=== PATIENT | male | born 1985 | race Caucasian/White ===

== ENCOUNTER 2018-05-06 20:37 | Emergency (ER) | payer OTHER ==
[~2018-05-06] VITALS: Ht 177.8 cm; Wt 95.7 kg
[~2018-05-06 20:37] MED LIST: ACET-7740 PO
[2018-05-06 20:45] VITALS: BP 146/85
--- NOTE | 2018-05-06 20:47 | NUR ---
pt returned to lobby in stable condition
--- NOTE | 2018-05-06 21:20 | NUR ---
ASSUMED CARE OF PT AT THIS TIME. C/O LACERATION TO VOLAR SURFACE OF RIGHT FOOT S/P ACCIDENTALLY BREAKING GLASS BOTTLE OVER FOOT. BLEEDING WELL CONTROLLED AT THIS TIME. AAOX4 WITH EVEN AND STEADY GAIT; PATIENT STATES PAIN OF 9/10; VSS; PATIENT POSITIONED FOR COMFORT; HOB ELEVATED; BEDRAILS UP X2; BED DOWN. ER MD MADE AWARE OF PT STATUS. WILL CONTINUE TO MONITOR.
[2018-05-06] MEDS ORDERED: BACITRACIN OINT 500 UNITS/GM PKT TP ONE (21:55)
[2018-05-06] MEDS ORDERED: LIDOCAINE 2% 1000 MG/50 ML VIAL INJ ONE (21:55)
[2018-05-06] MEDS ORDERED: LIDOCAINE 1% ***ER ONLY *** 10 MG/ML VIAL INJ ONE (22:00)
[2018-05-06] MEDS ORDERED: LIDOCAINE MPF 1% - 5 mL VIAL 5 ML ONE (22:03)
[2018-05-06 22:45] VITALS: BP 138/84
== END 2018-05-06 22:45 | disposition home or self-care (01) ==
LOC: MED 20:37
DX: S91.311A Laceration without foreign body, right foot, initial encounter (principal); Z79.899 Other long term (current) drug therapy; W25.XXXA Contact with sharp glass, initial encounter; Y93.89 Activity, other specified; Y92.89 Other specified places as the place of occurrence of the external cause; Y99.8 Other external cause status
CPT/HCPCS: 12002; 99283; J2001

== ENCOUNTER 2019-06-08 08:08 | Emergency (ER) | payer OTHER ==
[~2019-06-08] VITALS: Ht 175.3 cm; Wt 99.8 kg
--- NOTE | 2019-06-08 08:14 | NUR ---
PATIENT AMBULATED WITH STEADY GAIT TO BED 4.
[2019-06-08 08:22] VITALS: BP 146/85
--- NOTE | 2019-06-08 08:26 | NUR ---
FLU SWAB PERFORMED, SENT TO LAB.
--- NOTE | 2019-06-08 08:26 | NUR ---
33 Y/O M C/O FEVER, COUGH X1 DAY. PT DOES NOT HAVE A FEVER TODAY, 98.1. VS STABLE O2 98%. PT DENIES N/V/DIAHRREA. PT POSITIONED FOR COMFORT, AT BEDSIDE. LEXIE
--- NOTE | 2019-06-08 10:25 | NUR ---
PT RESTING COMFORTABLY, INFORMED WAITING FOR TEST RESULTS. VS STABLE.
[2019-06-08] MEDS ORDERED: KETOROLAC 30 MG/ML VIAL IM ONE (10:55)
--- NOTE | 2019-06-08 11:45 | NUR ---
Patient discharged with v/s stable. Written and verbal after care instructions given and explained. Patient alert, oriented and verbalized understanding of instructions. Ambulatory with steady gait. All questions addressed prior to discharge. ID band removed. Patient advised to follow up with PMD. Rx of PROMETHAZINE, TESSALON PERLES, TAMIFLU given. Patient educated on indication of medication including possible reaction and side effects. Opportunity to ask questions provided and answered.
[2019-06-08 11:46] VITALS: BP 140/86
== END 2019-06-08 11:45 | disposition home or self-care (01) ==
LOC: MED 08:08
DX: B34.9 Viral infection, unspecified (principal); Z79.899 Other long term (current) drug therapy
CPT/HCPCS: 71045; 87804; 96372; 99284; J1885; Q0092

== ENCOUNTER 2021-06-17 18:55 | Emergency (ER) | payer OTHER ==
[~2021-06-17] VITALS: Ht 175.3 cm; Wt 93.0 kg
[2021-06-17 19:20] VITALS: BP 149/90
--- NOTE | 2021-06-17 19:23 | NUR ---
to lobby a/w bed ambulatory
[2021-06-17] MEDS ORDERED: IBUP-2213 PO (19:49)
--- NOTE | 2021-06-17 19:55 | NUR ---
Patient has laceration to left index finger. PA applied sutures using sterile technique. Edges well approximated. Site cleansed with NS. No bleeding noted. Pt tolerated well.
[2021-06-17 20:10] VITALS: BP 149/90
== END 2021-06-17 20:10 | disposition home or self-care (01) ==
LOC: MED 18:55
DX: S61.211A Laceration without foreign body of left index finger without damage to nail, initial encounter (principal); W45.8XXA Other foreign body or object entering through skin, initial encounter; Y93.89 Activity, other specified; Y92.89 Other specified places as the place of occurrence of the external cause; Y99.8 Other external cause status
CPT/HCPCS: 12001; 99282

== ENCOUNTER 2021-12-08 23:21 | Emergency (ER) | payer MEDICAID, OTHER ==
[~2021-12-08] VITALS: Ht 175.3 cm; Wt 95.3 kg
[~2021-12-08 23:21] MED LIST changes: +IBUP-2213 PO
[2021-12-08 23:50] VITALS: BP 150/98
--- NOTE | 2021-12-08 23:50 | NUR ---
to bed ambulatory
[2021-12-09] MEDS ORDERED: KETOROLAC 60 MG/2 ML VIAL IM ONE
[2021-12-09] MEDS ORDERED: IBUP-2213 PO (01:33)
[2021-12-09 01:43] VITALS: BP 150/98
--- NOTE | 2021-12-09 01:43 | NUR ---
Patient discharged with v/s stable. Written and verbal after care instructions given and explained about muscle cramps and spasms, and musculoskeletal pain. Patient alert, oriented and verbalized understanding of instructions. Ambulatory with steady gait. All questions addressed prior to discharge. ID band removed. Patient advised to follow up with PMD. Rx of ibuprofen given. Patient educated on indication of medication including possible reaction and side effects. Opportunity to ask questions provided and answered.
== END 2021-12-09 01:43 | disposition home or self-care (01) ==
LOC: MED 23:21
DX: M79.651 Pain in right thigh (principal); Z79.899 Other long term (current) drug therapy; Z79.1 Long term (current) use of non-steroidal anti-inflammatories (NSAID)
CPT/HCPCS: 96372; 99283; J1885

== ENCOUNTER 2022-11-08 18:51 | Emergency (ER) | payer OTHER, MEDICAID ==
[~2022-11-08] VITALS: Ht 175.3 cm; Wt 95.3 kg
[2022-11-08 19:16] VITALS: BP 134/87
--- NOTE | 2022-11-08 19:23 | NUR ---
TO BED FROM TRIAGE
--- NOTE | 2022-11-08 19:44 | NUR ---
Dr. Barrios examining patient.
[2022-11-08] MEDS ORDERED: LIDOCAINE 1% 500 MG/ 50 ML VIAL INJ ONE (19:45)
[2022-11-08] MEDS ORDERED: BACITRACIN OINT 500 UNITS/GM PKT TP ONE (19:45)
--- NOTE | 2022-11-08 19:48 | NUR ---
37 Y/O M from home presents with laceration L thumb with stinging while at work xtoday 10am. pt is A&Ox4, skin intact, respirations even and unlabored, ambulatory. pt denies any NVD or headaches. pmh-pt denies NKA
[2022-11-08] MEDS ORDERED: LIDOCAINE MPF 1% 5 ML ONE (19:55)
[2022-11-08] MEDS ORDERED: IBUP-2213 PO (20:53)
--- NOTE | 2022-11-08 21:00 | NUR ---
Patient discharged with v/s stable. Written and verbal after care instructions given and explained. Patient alert, oriented and verbalized understanding of instructions. Ambulatory with steady gait. All questions addressed prior to discharge. ID band removed. Patient advised to follow up with PMD. Rx of Ibuprofen given. Opportunity to ask questions provided and answered. Dr. Escalera orders reinforced
[2022-11-12] MEDS ORDERED: CEPH-588 PO (16:10)
== END 2022-11-08 21:00 | disposition home or self-care (01) ==
LOC: MED 18:51
DX: S61.012A Laceration without foreign body of left thumb without damage to nail, initial encounter (principal); F17.210 Nicotine dependence, cigarettes, uncomplicated; Z79.899 Other long term (current) drug therapy; Z79.1 Long term (current) use of non-steroidal anti-inflammatories (NSAID); W45.8XXA Other foreign body or object entering through skin, initial encounter; Y93.89 Activity, other specified; Y92.89 Other specified places as the place of occurrence of the external cause; Y99.8 Other external cause status
CPT/HCPCS: 12001; 99282; J2001

== ENCOUNTER 2023-10-12 17:09 | Emergency (ER) | payer MEDICAID, OTHER ==
[~2023-10-12] VITALS: Ht 175.3 cm; Wt 93.9 kg
[~2023-10-12 17:09] MED LIST changes: +CEPH-588 PO
[2023-10-12 17:16] VITALS: BP 152/93; PULSE 80; TEMP 98.7; O2SAT 99
[2023-10-12] MEDS ORDERED: HYDR28CR67 TP (18:00)
[2023-10-12] MEDS ORDERED: DIPH25TA53 PO (18:00)
== END 2023-10-12 18:18 | disposition home or self-care (01) ==
LOC: MED 17:09
DX: L25.9 Unspecified contact dermatitis, unspecified cause (principal); Z79.899 Other long term (current) drug therapy
CPT/HCPCS: 82948; 99282